=== PATIENT | female | born 1935 | race Caucasian/White ===

== ENCOUNTER 2016-12-08 09:39 | Outpatient (CLI) | payer MEDICARE, OTHER ==
--- NOTE | 2016-12-09 15:40 | Mammography Report ---
DIGITAL SCREENING MAMMOGRAM: 12/08/2016 CLINICAL INDICATION: A 81-year-old with bilateral implants for screening. COMPARISON: 11/2015, 09/2014, 09/2013, 08/2012, 08/2010, 06/2008, 06/2007. TECHNIQUE: Routine CC and MLO projections were obtained of the breasts as well as bilateral implant displaced views. FINDINGS: The breasts demonstrate scattered fibroglandular densities bilaterally. Coarse and puncta te, typically benign calcifications are present. Bilateral subpectoral saline implants are stable. No suspicious masses, clustered microcalcifications, or regions of architectural distortion are ident ified. IMPRESSION: BENIGN FINDINGS. RECOMMENDATION: Routine annual screening unless otherwise clinically indicated. BI-RADS category 2, benign findings. STANDARD QUALIFYING STATEMENTS 1. This examination was reviewed with the aid of Computer-Aided Detection (CAD). 2. A negative or benign imaging report should not delay biopsy if clinically suspicious findings are present. Consider surgical consultation if warranted. More than 5% of cancers are not identified by i maging. 3. Dense breasts may obscure an underlying neoplasm. JOB #: [id number] EXT JOB #:[id number]
== END 2016-12-08 09:40 | disposition home or self-care (01) ==
LOC: DI 09:39
PROVIDERS: ATTEND Family Medicine
DX: Z12.31 Encounter for screening mammogram for malignant neoplasm of breast (principal)
CPT/HCPCS: 77067

== ENCOUNTER 2017-08-27 13:36 | Outpatient (CLI) | payer MEDICARE, OTHER ==
[2017-08-27 19:38] LABS: BILIRUBIN,URINE NEGATIVE (NEGATIVE); GLUCOSE, URINE (UA) NEGATIVE (NEGATIVE); KETONES,URINE (UA) NEGATIVE (NEGATIVE); LEUKOCYTE ESTERASE, URINE NEGATIVE (NEGATIVE); NITRITE,URINE POSITIVE (NEGATIVE); OCCULT BLOOD,URINE NEGATIVE (NEGATIVE); PH,URINE 5.5 PH (5.0-7.5); PROTEIN,URINE NEGATIVE (NEGATIVE); UROBILINOGEN,URINE 0.2 (NORMAL) E.U./dL (NORMAL)
[2017-08-27 19:46] LABS: BACTERIA,URINE Few /HPF (None Seen); CLARITY,URINE CLEAR (CLEAR); RBC,URINE 0-5 /HPF (0-5); SQUAMOUS EPITHELIAL CELL,UR MOD Squamous (<= Few)
== END 2017-08-27 13:37 ==
LOC: LAB.R 13:36
PROVIDERS: ATTEND Family Medicine
DX: R35.0 Frequency of micturition (principal)
CPT/HCPCS: 81001; 87086

== ENCOUNTER 2017-12-10 10:40 | Outpatient (CLI) | payer MEDICARE, OTHER ==
--- NOTE | 2017-12-11 14:56 | Mammography Report ---
Procedure Date: 12/10/2017 Accession Number: [id number] / [id number] Procedure: KEVIN - Screening Mammo Dig w/Implants CPT Code: FULL RESULT: EXAM: Screening Mammo Dig w/Implants DATE: 12/10/2017 11:05 AM CLINICAL HISTORY: 82-year-old for screening TECHNIQUE: Bilateral CC and MLO views, implant displaced views were obtained. COMPARISON: 12/08/2016, 12/06/2015, 09/22/2014, 09/13/2013, 08/20/2012, 08/21/2010 FINDINGS: The breasts demonstrate scattered fibroglandular densities bilaterally. Bilateral saline implants are stable. Punctate, typically benign calcifications are present. No suspicious masses, clustered microcalcifications, or regions of architectural distortion are identified. IMPRESSION: Benign findings RECOMMENDATION: Routine annual screening unless otherwise clinically indicated. BIRADS CATEGORY 2: Benign findings STANDARD QUALIFYING STATEMENTS: 1. This examination was reviewed with the aid of Computer-Aided Detection (CAD). 2. A negative or benign imaging report should not delay biopsy if clinically suspicious findings are present. Consider surgical consultation if warrented. More than 5% of cancers are not identified by imaging. 3. Dense breasts may obscure an underlying neoplasm.
== END 2017-12-10 10:41 | disposition home or self-care (01) ==
LOC: DI 10:40
PROVIDERS: ATTEND Family Medicine
DX: Z12.31 Encounter for screening mammogram for malignant neoplasm of breast (principal); Z98.82 Breast implant status
CPT/HCPCS: 77067

== ENCOUNTER 2018-01-29 09:55 | Outpatient (CLI) | payer MEDICARE, OTHER ==
--- NOTE | 2018-01-29 13:08 | DEXA Report ---
Procedure Date: 01/29/2018 Accession Number: [id number] / [id number] Procedure: DEX - Dexa Spine and/or Hip CPT Code: FULL RESULT: EXAM: DEXA SCAN DATE: 01/29/2018. HISTORY: 82-year-old postmenopausal female. COMPARISON: None. TECHNIQUE: Lumbar spine and left hip were evaluated. FINDINGS: See separate data worksheet. Lumbar spine: Bone mineral density 0.980 g/sq cm, T score -1.7, Z score 0.6. Left hip: Neck: Bone mineral density 0.829 g/sq cm, T score -1.5, Z score 1.0. Total: Bone mineral density 0.890 g/sq cm, T score -0.9, Z score 1.4. IMPRESSION: Osteopenia. T score at or above -1 is normal. T score between -1 and 2.5 = Osteopenia T score at or below -2.5 = Osteoporosis. RADIA
== END 2018-01-29 09:56 | disposition home or self-care (01) ==
LOC: DI 09:55
PROVIDERS: ATTEND Family Medicine
DX: M85.89 Other specified disorders of bone density and structure, multiple sites (principal)
CPT/HCPCS: 77080

== ENCOUNTER 2018-08-05 06:09 | Day surgery (SDC) | payer MEDICARE, OTHER ==
[2018-08-05] MEDS ORDERED: PHENYLEPHRINE 2.5% OPHTH 2 ML DROPS ONE (06:28)
[2018-08-05] MEDS ORDERED: KETOROLAC 0.45% OPHTH DROPS ONE (06:28)
[2018-08-05] MEDS ORDERED: PROPARACAINE 0.5% OPHTH DROPS 15 ML ONE (06:29)
[2018-08-05] MEDS ORDERED: CYCLOPENTOLATE 1% OPHTH DROPS 2 ML ONE (06:29)
[2018-08-05] MEDS ORDERED: KETOROLAC 0.45% OPHTH DROPS LEFTEYE ONE (06:42)
[2018-08-05] MEDS ORDERED: PHENYLEPHRINE 2.5% OPHTH 2 ML DROPS LEFTEYE ONE (06:42)
[2018-08-05] MEDS ORDERED: PROPARACAINE 0.5% OPHTH DROPS 15 ML LEFTEYE ONE ×2 (06:42→07:43)
[2018-08-05] MEDS ORDERED: CYCLOPENTOLATE 1% OPHTH DROPS 2 ML LEFTEYE ONE (06:42)
[2018-08-05] MEDS ORDERED: LACTATED RINGERS 1,000 ML IV ONE (06:55)
--- NOTE | 2018-08-05 07:04 | ANESTHESIA ---
Pre-Anesthesia VS, & Labs - Diagnosis Senile combined cataract left eye - Procedure cataract extraction with intraocular lens implant left eye Vital Signs: Temp Pulse Resp BP Pulse Ox 37.4 C 72 14 134/67 H 98 08/05/18 06:37 08/05/18 06:37 08/05/18 06:37 08/05/18 06:37 08/05/18 06:37 Height 5 ft 7 in Weight (kg) 50.3 kg Body Mass Index 20.3 - NPO >8 hours - Is Patient ?: No Home Medications and Allergies Levothyroxine Sodium [Synthroid] 50 mcg PO DAILY 10/28/13 Pentosan Polysulfate Sodium [Elmiron] 100 mg PO DAILY 10/28/13 Allergies/Adverse Reactions: Allergies Allergy/AdvReac Type Severity Reaction Status Date / Time simvastatin AdvReac Intermediate muscle Verified 10/28/13 05:24 aches Anes History & Medical History - Anesthetic History Anesthesia Complications: reports: No previous complications - Medical History Cardiovascular: reports: High cholesterol Pulmonary: reports: None Gastrointestinal: reports: Diverticulitis Urinary: reports: None Neuro: reports: None Musculoskeletal: reports: Osteoarthritis Endocrine/Autoimmune: reports: HyPOthyroidism Skin: reports: None Smoking Status: Never smoker Psychosocial: reports: Depression, Anxiety, Alcohol (1 glass of wine every evening) - Surgical History General: Colonoscopy Gynecologic: LEEP (Cervical surgery) Exam General: Alert, Oriented x3, Cooperative, No acute distress Dental: WNL Mouth Openin Fingerbreadth Neck Mobility: Normal Mallampati classification: II Thyromental Distance: 4-6 cm Respiratory: Lungs clear, Normal breath sounds, No respiratory distress, No accessory muscle use Cardiovascular: Regular rate, Normal S1, Normal S2, No murmurs Mental/Cognitive Status: Alert/Oriented X3, Normal for patient Plan Anesthesia Type: MAC Consent for Procedure(s) Verified and Reviewed: Yes Code Status: Attempt Resuscitation ASA classification: 2-Mild systemic disease Is this case an emergency?: No
[2018-08-05] MEDS ORDERED: BRIMONIDINE 0.2% OPHTH DROPS 5 ML ONE (07:09)
[2018-08-05] MEDS ORDERED: EPINEPHrine 1 MG/ML AMP ONE (07:09)
[2018-08-05] MEDS ORDERED: TRIAMCIN/MOXIFLOX OPHTHALMIC 0.6 ML VIAL IO ONE ×2 (07:09→07:44)
[2018-08-05] MEDS ORDERED: TIMOLOL 0.5% OPHTH DROPS ONE (07:09)
[2018-08-05] MEDS ORDERED: VANCOMYCIN OPHTHALMI 8MG/0.8ML 8 MG/0.8 ML SYRINGE IO ONE ×2 (07:10→07:43)
[2018-08-05] MEDS ORDERED: BSS/LIDOCAINE/EPINEPHRINE 1 ML SYRINGE ONE (07:10)
[2018-08-05] MEDS ORDERED: MIDAZOLAM 2 MG/2 ML VIAL IVP ONE (07:15)
[2018-08-05] MEDS ORDERED: TIMOLOL 0.5% OPHTH DROPS OPTH ONE (07:42)
[2018-08-05] MEDS ORDERED: CHONDR SULF/HYALURONATE SYRINGE IO ONE (07:42)
[2018-08-05] MEDS ORDERED: EPINEPHrine 1 MG/ML AMP IVP ONE (07:42)
[2018-08-05] MEDS ORDERED: BRIMONIDINE 0.2% OPHTH DROPS 5 ML OPTH ONE (07:42)
[2018-08-05] MEDS ORDERED: BSS/LIDOCAINE/EPINEPHRINE 1 ML SYRINGE IO ONE ×2 (07:42)
[2018-08-05 08:04] VITALS: BP 117/56
--- NOTE | 2018-08-05 08:28 | OPERATIVE REPORT ---
DATE OF SERVICE: 08/05/2018 Physician: Boy Jasmine MD PREOPERATIVE DIAGNOSIS: Visually significant cataract, left eye. This was her first cataract surger y. POSTOPERATIVE DIAGNOSIS: Visually significant cataract, left eye. This was her first cataract surge ry. NAME OF PROCEDURE: Phacoemulsification with posterior chamber intraocular lens implant, left eye. SURGEON: Boy Jasmine MD ANESTHESIA: Monitored anesthesia care. COMPLICATIONS: None. OPERATIVE INDICATIONS: This is an 83-year-old woman with progressive vision loss in the left eye due to a 2+ nuclear sclerotic and vacuole cataract. Best corrected visual acuity was 20/40 with glare t o 20/50 in the left eye. Indications for surgery are difficulty seeing words, closed captions or rivka e scores on TV, difficulty seeing street signs, difficulty driving at night because of headlights fro m other vehicles and/or street lights, and difficulty with glare or bright lights in any situation. She was consented at length concerning the risks and benefits of cataract surgery, after which she ex pressed a desire to proceed with surgery. OPERATIVE PROCEDURE: Patient was taken into OR #3 and placed under monitored anesthesia care. A brianda gical timeout was conducted confirming correct patient, correct procedure, and correct surgical site. She was given topical anesthesia, and then prepped and draped in the usual sterile fashion. The ey e was entered at the 6 and 3 o'clock positions. Intracameral Shugarcaine was injected into the anter ior chamber, followed by Viscoat. A continuous-tear curvilinear capsulorrhexis was performed. The n ucleus was hydrodissected and phacoemulsified. The cortex was evacuated using automated infusion and aspiration. Provisc was injected in the capsular bag, and a 22.5 diopter intraocular lens was inser yuliana into the bag. Approximately 0.8 mL of a mixture of triamcinolone, moxifloxacin, and vancomycin w as injected subconjunctivally in the superior quadrant for infection and inflammation prophylaxis. I and A was used to evacuate the viscoelastic materials. The eye was inflated to physiologic pressure using a balanced salt solution and found to be watertight. Patient was taken from the operating amador m in good condition and given postoperative instructions. TD: 08/05/2018 08:06
== END 2018-08-05 06:10 | disposition home or self-care (01) ==
LOC: SDS 06:09
PROVIDERS: ATTEND Ophthalmology
PROC: 08RK3JZ Replacement of Left Lens with Synthetic Substitute, Percutaneous Approach (ICD-10-PCS; principal; 2018-08-05 07:30)
DX: H25.812 Combined forms of age-related cataract, left eye (principal); E78.00 Pure hypercholesterolemia, unspecified; E03.9 Hypothyroidism, unspecified; M19.90 Unspecified osteoarthritis, unspecified site; R32 Unspecified urinary incontinence; Z87.440 Personal history of urinary (tract) infections
CPT/HCPCS: 66984; A9270; J3490; J7120; V2632

== ENCOUNTER 2018-08-18 09:50 | Outpatient (CLI) | payer MEDICARE, OTHER ==
[2018-08-18 12:31] LABS: BASOPHILS # (AUTO) 0.1 10^3/uL (0.0-0.1); BASOPHILS % (AUTO) 1.4 %; EOSINOPHILS # (AUTO) 0.2 10^3/uL (0.0-0.7); EOSINOPHILS % (AUTO) 3.3 %; HGB - HEMOGLOBIN 13.7 g/dL (12.0-16.0); LYMPHOCYTES % (AUTO) 21.7 %; MEAN CORPUSCULAR HEMOGLOBIN 31.2 pg (27.0-31.0); MEAN CORPUSCULAR HGB CONC 33.8 g/dL (32.0-36.0); MEAN CORPUSCULAR VOLUME 92.2 fL (81.0-99.0); MEAN PLATELET VOLUME 9.3 fL (7.9-10.8); MONOCYTES # (AUTO) 0.5 10^3/uL (0.0-1.0); MONOCYTES % (AUTO) 10.3 %; NEUTROPHILS # (AUTO) 2.9 10^3/uL (1.5-6.6); NEUTROPHILS % (AUTO) 63.3 %; PLT - PLATELET COUNT 184 10^3/uL (130-450); RED BLOOD COUNT 4.39 10^6/uL (4.20-5.40); RED CELL DISTRIBUTION WIDTH 13.9 % (12.0-15.0); WHITE BLOOD COUNT 4.6 x10^3/uL (4.8-10.8)
[2018-08-18 13:44] LABS: ALBUMIN 4.3 g/dL (3.2-5.5); ALBUMIN/GLOBULIN RATIO 1.5 (1.0-2.2); BILIRUBIN,TOTAL 1.4 mg/dL (0.2-1.0); CALCIUM 9.8 mg/dL (8.5-10.3); CREATININE 0.7 mg/dL (0.4-1.0); TOTAL PROTEIN 7.2 g/dL (6.7-8.2)
== END 2018-08-18 23:59 | disposition home or self-care (01) ==
LOC: LAB.WCP 09:50
PROVIDERS: ATTEND Physician Assistant
DX: R00.2 Palpitations (principal)
CPT/HCPCS: 36415; 80053; 85025

== ENCOUNTER 2018-08-20 09:09 | Outpatient (CLI) | payer MEDICARE, OTHER ==
[2018-08-20 13:22] LABS: THYROID STIMULATING HORMONE 3.62 uIU/mL (0.34-5.60)
[2018-08-20 13:24] LABS: FREE T4 (FREE THYROXINE) 0.91 ng/dL (0.58-1.64)
== END 2018-08-20 23:59 | disposition home or self-care (01) ==
LOC: LAB.WCP 09:09
PROVIDERS: ATTEND Physician Assistant
DX: E03.9 Hypothyroidism, unspecified (principal)
CPT/HCPCS: 36415; 84439; 84443; 84481

== ENCOUNTER 2018-08-25 08:58 | Outpatient (CLI) | payer MEDICARE, OTHER | END 2018-08-25 08:59 | disposition home or self-care (01) | LOC: DI 08:58 | PROVIDERS: ATTEND Physician Assistant | DX: R00.2 Palpitations (principal) | CPT/HCPCS: 93306 ==

== ENCOUNTER 2018-12-02 08:49 | Day surgery (SDC) | payer MEDICARE, OTHER ==
[~2018-12-02 08:49] MED LIST: BRIMONIDINE 0.2% OPHTH DROPS 5 ML ONE; BSS/LIDOCAINE/EPINEPHRINE 1 ML SYRINGE ONE; CYCLOPENTOLATE 1% OPHTH DROPS 2 ML ONE; EPINEPHrine 1 MG/ML AMP ONE; KETOROLAC 0.45% OPHTH DROPS ONE; PHENYLEPHRINE 2.5% OPHTH 2 ML DROPS ONE; PROPARACAINE 0.5% OPHTH DROPS 15 ML ONE; TIMOLOL 0.5% OPHTH DROPS ONE; TRIAMCIN/MOXIFLOX OPHTHALMIC 0.6 ML VIAL IO ONE; VANCOMYCIN OPHTHALMI 8MG/0.8ML 8 MG/0.8 ML SYRINGE IO ONE
[2018-12-02] MEDS ORDERED: LACTATED RINGERS 500 ML IV ONE (09:35)
[2018-12-02] MEDS ORDERED: CYCLOPENTOLATE 1% OPHTH DROPS 2 ML RIGHTEYE ONE (09:40)
[2018-12-02] MEDS ORDERED: PHENYLEPHRINE 2.5% OPHTH 2 ML DROPS RIGHTEYE ONE (09:40)
[2018-12-02] MEDS ORDERED: PROPARACAINE 0.5% OPHTH DROPS 15 ML RIGHTEYE ONE (09:40)
[2018-12-02] MEDS ORDERED: KETOROLAC 0.45% OPHTH DROPS RIGHTEYE ONE (09:40)
--- NOTE | 2018-12-02 10:00 | ANESTHESIA ---
Pre-Anesthesia VS, & Labs - Diagnosis senile combined cataract - Procedure right cataract extraction with intraocular lens implant Height 5 ft 7 in Body Mass Index 20.3 - NPO >8 hours - Is Patient ?: No, Not Applicable Home Medications and Allergies Levothyroxine Sodium [Synthroid] 50 mcg PO DAILY 10/28/13 Pentosan Polysulfate Sodium [Elmiron] 100 mg PO DAILY 10/28/13 Allergies/Adverse Reactions: Allergies Allergy/AdvReac Type Severity Reaction Status Date / Time simvastatin AdvReac Intermediate muscle Verified 10/28/13 05:24 aches Anes History & Medical History - Medical History Cardiovascular: reports: High cholesterol, Arrhythmia (had holter study for palpitations, patient states negative. echo normal) Pulmonary: reports: None Gastrointestinal: reports: Diverticulitis Urinary: reports: None Neuro: reports: None Musculoskeletal: reports: Osteoarthritis Endocrine/Autoimmune: reports: HyPOthyroidism Skin: reports: None Smoking Status: Never smoker - Surgical History General: Colonoscopy Gynecologic: LEEP (Cervical surgery) Exam General: Alert Dental: WNL Mouth Opening: Greater than 4 Fingerbreadths Neck Mobility: Normal Mallampati classification: II Thyromental Distance: greater than 6 cm Respiratory: Lungs clear Cardiovascular: Regular rate, Normal S1 Mental/Cognitive Status: Alert/Oriented X3 Plan Anesthesia Type: MAC Consent for Procedure(s) Verified and Reviewed: Yes Code Status: Attempt Resuscitation ASA classification: 2-Mild systemic disease Is this case an emergency?: No
[2018-12-02] MEDS ORDERED: TIMOLOL 0.5% OPHTH DROPS RIGHTEYE ONE (10:18)
[2018-12-02] MEDS ORDERED: BRIMONIDINE 0.2% OPHTH DROPS 5 ML OPTH ONE (10:18)
[2018-12-02] MEDS ORDERED: CHONDR SULF/HYALURONATE SYRINGE IO ONE (10:18)
[2018-12-02] MEDS ORDERED: EPINEPHrine 1 MG/ML AMP IVP ONE (10:18)
[2018-12-02] MEDS ORDERED: BSS/LIDOCAINE/EPINEPHRINE 1 ML SYRINGE IO ONE (10:19)
[2018-12-02] MEDS ORDERED: VANCOMYCIN OPHTHALMI 8MG/0.8ML 8 MG/0.8 ML SYRINGE IO ONE (10:21)
[2018-12-02] MEDS ORDERED: TRIAMCIN/MOXIFLOX OPHTHALMIC 0.6 ML VIAL IO ONE (10:22)
[2018-12-02] MEDS ORDERED: MIDAZOLAM 2 MG/2 ML VIAL IVP ONE (10:30)
[2018-12-02 10:44] VITALS: BP 116/55
--- NOTE | 2018-12-02 13:08 | OPERATIVE REPORT ---
DATE OF SERVICE: 12/02/2018 Physician: Boy Jasmine MD PREOPERATIVE DIAGNOSIS: Visually significant cataract, right eye. Cataract surgery was performed on the left eye on 08/05/2018. POSTOPERATIVE DIAGNOSIS: Visually significant cataract, right eye. Cataract surgery was performed o n the left eye on 08/05/2018. PROCEDURE: Phacoemulsification with posterior chamber intraocular lens implant, right eye. SURGEON: Byo Jasmine MD ANESTHESIA: Monitored anesthesia care. COMPLICATIONS: None. OPERATIVE INDICATIONS: This is an 83-year-old woman with progressive vision loss in the right eye du e to 2+ nuclear sclerotic and vacuolar cataract. Best corrected visual acuity was 20/40, with glare to 20/80 in the right eye. Indications for surgery are overall decrease in vision, difficulty seeing words, closed captions, games scores on TV and difficulty seeing street signs. She was consented at length concerning the risks and benefits of cataract surgery, after which she expressed a desire to proceed with surgery. OPERATIVE PROCEDURE: Patient was taken to OR #3 and placed under monitored anesthesia care. A surgi yaquelin timeout was conducted confirming the correct patient, correct procedure, and correct surgical sit e. She was given topical anesthesia, and prepped and draped in the usual sterile fashion. The eye w as entered at the 12 and 9 o'clock positions. Intracameral Shugarcaine was injected into the anterio r chamber, followed by Viscoat. A continuous-tear curvilinear capsulorrhexis was performed. The nuc leus was hydrodissected and phacoemulsified. The cortex was evacuated using automated infusion and a spiration. Provisc was injected into the capsular bag, and a 22.5 diopter intraocular lens inserted in the bag. Approximately 0.8 mL mixture of triamcinolone, moxifloxacin and vancomycin was injected subconjunctivally in the superior quadrant for infection and inflammation prophylaxis. I and A was u sed to evacuate viscoelastic materials. The eye was inflated to physiologic pressure using balanced salt solution and found to be watertight. Patient was taken from the operating room in [facility] n and given postoperative instructions. TD: 12/02/2018 10:46
== END 2018-12-02 08:50 | disposition home or self-care (01) ==
LOC: SDS 08:49
PROVIDERS: ATTEND Ophthalmology
PROC: 08RJ3JZ Replacement of Right Lens with Synthetic Substitute, Percutaneous Approach (ICD-10-PCS; principal; 2018-12-02 10:30)
DX: H25.811 Combined forms of age-related cataract, right eye (principal); Z87.891 Personal history of nicotine dependence; Z98.42 Cataract extraction status, left eye
CPT/HCPCS: 66984; A9270; J3490; V2632

== ENCOUNTER 2019-01-19 14:02 | Outpatient (CLI) | payer MEDICARE, OTHER ==
--- NOTE | 2019-01-20 08:41 | Mammography Report ---
Reason: ANNUAL Procedure Date: 01/19/2019 Accession Number: [id number] / [id number] Procedure: KEVIN - Screening Mammo Dig w/Implants CPT Code: FULL RESULT: EXAM: Screening Mammo Dig w/Implants DATE: 01/19/2019 3:34 PM CLINICAL HISTORY: Screening encounter. History of endometrial cancer and bilateral saline implants most recently revised in 2000. TECHNIQUE: (B) - Bilateral CC and MLO views were obtained. Views are obtained in standard and implant displaced fashion COMPARISON: 12/10/2017 through 09/22/2014. PARENCHYMAL PATTERN: (A) - The breast(s) demonstrate(s) scattered fibroglandular densities. FINDINGS: Intact-appearing bilateral saline implants are noted. There are no suspicious masses, calcifications, or areas of distortion. IMPRESSION: Benign findings. BI-RADS category 2. RECOMMENDATION: (ANNUAL) - Recommend routine annual screening mammography. BI-RADS CATEGORY: (2) - Benign Findings. STANDARD QUALIFYING STATEMENTS: 1. This examination was not reviewed with the aid of Computer-Aided Detection (CAD). 2. A negative or benign imaging report should not preclude biopsy if clinically suspicious findings are present. 3. Dense breasts may obscure an underlying neoplasm. 4. This examination was reviewed without the aid of 3D breast imaging (tomosynthesis).
== END 2019-01-19 14:03 | disposition home or self-care (01) ==
LOC: DI 14:02
DX: Z12.31 Encounter for screening mammogram for malignant neoplasm of breast (principal); Z98.82 Breast implant status
CPT/HCPCS: 77067

== ENCOUNTER 2020-04-18 09:35 | Outpatient (CLI) | payer MEDICARE, OTHER ==
--- NOTE | 2020-04-18 12:32 | XRAY Report ---
PROCEDURE: Ankle 3 View RT INDICATIONS: R ANKLE PAIN TECHNIQUE: 3 views of the ankle were acquired. COMPARISON: None FINDINGS: Bones: No fractures or dislocations but there does appear to be a transverse lucency at the inferior tip of the lateral malleolus potentially a small avulsion injury related to ligamentous attachment. Asymmetric soft tissue swelling is associated. Ankle mortise is normally aligned. No suspicious bon y lesions. Soft tissues: No tibiotalar joint effusion. Achilles tendon appears normal. IMPRESSION: Small avulsion fragment inferior tip of the lateral malleolus with overlying soft tissue swelling. Ligamentous injury is the likely cause. Reviewed by: Morgan Hansen MD on 04/18/2020 12:31 PM PST Approved by: Morgan Hansen MD on 04/18/2020 12:31 PM PST Station ID: [id number]
== END 2020-04-18 23:59 | disposition home or self-care (01) ==
LOC: DI.WCP 09:35
PROVIDERS: ATTEND Family Medicine
DX: R93.6 Abnormal findings on diagnostic imaging of limbs (principal)

== ENCOUNTER 2020-11-16 08:00 | Outpatient (CLI) | payer MEDICARE, OTHER ==
[2020-11-16 12:31] LABS: BASOPHILS % (AUTO) 0.8 %; EOSINOPHILS # (AUTO) 0.1 10^3/uL (0.0-0.7); EOSINOPHILS % (AUTO) 2.7 %; HCT - HEMATOCRIT 41.6 % (37.0-47.0); HGB - HEMOGLOBIN 13.5 g/dL (12.0-16.0); LYMPHOCYTES # (AUTO) 1.1 10^3/uL (1.5-3.5); LYMPHOCYTES % (AUTO) 22.1 %; MEAN CORPUSCULAR HEMOGLOBIN 31.2 pg (27.0-31.0); MEAN CORPUSCULAR HGB CONC 32.5 g/dL (32.0-36.0); MEAN CORPUSCULAR VOLUME 96.1 fL (81.0-99.0); MEAN PLATELET VOLUME 11.2 fL (7.9-10.8); MONOCYTES # (AUTO) 0.5 10^3/uL (0.0-1.0); MONOCYTES % (AUTO) 9.3 %; NEUTROPHILS # (AUTO) 3.3 10^3/uL (1.5-6.6); NEUTROPHILS % (AUTO) 64.7 %; PLT - PLATELET COUNT 161 10^3/uL (130-450); RED BLOOD COUNT 4.33 10^6/uL (4.20-5.40); RED CELL DISTRIBUTION WIDTH 13.6 % (12.0-15.0); WHITE BLOOD COUNT 5.2 x10^3/uL (4.8-10.8)
[2020-11-16 12:51] LABS: THYROID STIMULATING HORMONE 2.66 uIU/mL (0.34-5.60)
[2020-11-16 12:57] LABS: ALBUMIN 4.4 g/dL (3.2-5.5); ALBUMIN/GLOBULIN RATIO 1.5 (1.0-2.2); BILIRUBIN,TOTAL 1.2 mg/dL (0.2-1.0); CALCIUM 9.7 mg/dL (8.5-10.3); CREATININE 0.7 mg/dL (0.4-1.0); POTASSIUM 4.4 mmol/L (3.5-5.0); TOTAL PROTEIN 7.3 g/dL (6.7-8.2)
== END 2020-11-16 23:59 | disposition home or self-care (01) ==
LOC: LAB.WCP 08:00
PROVIDERS: ATTEND Family Medicine
DX: D64.9 Anemia, unspecified (principal); E03.9 Hypothyroidism, unspecified
CPT/HCPCS: 36415; 80053; 82607; 82728; 83540; 84443; 84466; 85025

== ENCOUNTER 2021-02-07 12:48 | Outpatient (CLI) | payer MEDICARE, OTHER ==
--- NOTE | 2021-02-07 14:05 | DEXA Report ---
PROCEDURE: Dexa Spine and/or Hip INDICATIONS: OSTEOPENIA TECHNIQUE: Dual energy x-ray absorptiometry (DXA) was performed on a [employer]. Regions measur ed are the AP Spine, femoral neck, and if needed forearm. COMPARISON: None. FINDINGS: Lumbar Spine: Bone Mineral Density 0.987 g/cm/cm,T score -1.6, osteopenia Left Hip: Bone Mineral Density 0.855 g/cm/cm,T score -1.2, normal Neck Femoral Neck: Bone Mineral Density 0.819 g/cm/cm, T score -1.6, osteopenia (T score greater or equal to -1.0: NORMAL) (T score from -1.1 to -2.4: OSTEOPENIA) (T score less than or equal to -2.5 to: OSTEOPOROSIS) Impression: Bone mineral density consistent with osteopenia. Patients with diagnosis of osteoporosis or osteopenia should have regular bone mineral density assess ment. For those eligible for Medicare, routine testing is allowed once every 2 years. Testing frequ ency can be increased for patients who have rapidly progressing disease or for those who are receivin g medical therapy to restore bone mass. Reviewed by: Cayden Quiros on 02/07/2021 2:03 PM PDT Approved by: Cayden Quiros on 02/07/2021 2:03 PM PDT Station ID: [id number]
== END 2021-02-07 12:49 | disposition home or self-care (01) ==
LOC: DI 12:48
PROVIDERS: ATTEND Family Medicine
DX: M85.89 Other specified disorders of bone density and structure, multiple sites (principal)

== ENCOUNTER 2021-02-07 12:50 | Outpatient (CLI) | payer MEDICARE, OTHER ==
--- NOTE | 2021-02-08 13:38 | Mammography Report ---
BILATERAL DIGITAL SCREENING MAMMOGRAM 3D/2D WITH AUGMENTATION: 02/07/2021 CLINICAL: Routine screening. Comparison is made to exams dated: 01/19/2019 mammogram, 12/10/2017 mammogram, 12/08/2016 mammogram, 11/14 mammogram, 09/22/2014 mammogram, and 09/13/2013 mammogram - [facility]. There are scattered fibroglandular elements in both breasts. Bilateral breast implants are stable. No significant masses, calcifications, or other findings are seen in either breast. There has been no significant interval change. IMPRESSION: NEGATIVE There is no mammographic evidence of malignancy. A 1 year screening mammogram is recommended. This exam was interpreted at Station ID: [id number]. NOTE: For mammograms, a report in lay terms will be sent to the patient. Approximately 15% of breast malignancies will not be visualized mammographically. In the management of a palpable breast mass, a negative mammogram must not discourage biopsy of a clinically suspicious lesion. Electronically Signed By: Jamie Head M.D. atnasir/bellerad:02/07/2021 15:46:49 ACR BI-RADS Category 1: Negative 3341F PARENCHYMAL PATTERN: (A) - The breast(s) demonstrate(s) scattered fibroglandular densities. BI-RADS CATEGORY: (1) - 1 RECOMMENDATION: (ANNUAL) - Recommend routine annual screening mammography. [id number] 1 year screening LATERALITY: (B)
== END 2021-02-07 12:51 | disposition home or self-care (01) ==
LOC: DI 12:50
DX: Z12.31 Encounter for screening mammogram for malignant neoplasm of breast (principal); Z98.82 Breast implant status

== ENCOUNTER 2021-05-13 08:00 | Outpatient (CLI) | payer MEDICARE, OTHER ==
[2021-05-13 18:08] LABS: BASOPHILS # (AUTO) 0.1 10^3/uL (0.0-0.1); EOSINOPHILS # (AUTO) 0.2 10^3/uL (0.0-0.7); HCT - HEMATOCRIT 43.1 % (37.0-47.0); HGB - HEMOGLOBIN 14.6 g/dL (12.0-16.0); LYMPHOCYTES # (AUTO) 1.2 10^3/uL (1.5-3.5); LYMPHOCYTES % (AUTO) 24.4 %; MEAN CORPUSCULAR HEMOGLOBIN 32.7 pg (27.0-31.0); MEAN CORPUSCULAR HGB CONC 33.9 g/dL (32.0-36.0); MEAN CORPUSCULAR VOLUME 96.6 fL (81.0-99.0); MEAN PLATELET VOLUME 11.3 fL (7.9-10.8); MONOCYTES # (AUTO) 0.5 10^3/uL (0.0-1.0); NEUTROPHILS # (AUTO) 3.1 10^3/uL (1.5-6.6); NEUTROPHILS % (AUTO) 61.2 %; PLT - PLATELET COUNT 182 10^3/uL (130-450); RED BLOOD COUNT 4.46 10^6/uL (4.20-5.40); RED CELL DISTRIBUTION WIDTH 14.7 % (12.0-15.0); WHITE BLOOD COUNT 5.1 x10^3/uL (4.8-10.8)
[2021-05-13 18:26] LABS: ALBUMIN 4.8 g/dL (3.2-5.5); ALBUMIN/GLOBULIN RATIO 1.5 (1.0-2.2); BILIRUBIN,TOTAL 1.6 mg/dL (0.2-1.0); CALCIUM 10.2 mg/dL (8.5-10.3); CREATININE 0.7 mg/dL (0.4-1.0); POTASSIUM 3.7 mmol/L (3.5-5.0); TOTAL PROTEIN 7.9 g/dL (6.7-8.2)
== END 2021-05-13 23:59 | disposition home or self-care (01) ==
LOC: LAB.N 08:00
PROVIDERS: ATTEND Nurse Practitioner
DX: R42 Dizziness and giddiness (principal)
CPT/HCPCS: 36415; 80053; 85025

== ENCOUNTER 2022-07-14 12:37 | Outpatient (CLI) | payer MEDICARE, OTHER ==
--- NOTE | 2022-07-15 11:41 | Mammography Report ---
BILATERAL DIGITAL SCREENING MAMMOGRAM 3D/2D WITH AUGMENTATION: 07/14/2022 CLINICAL: Routine screening. Comparison is made to exams dated: 02/07/2021 mammogram, 01/19/2019 mammogram, 12/10/2017 mammogram, 11/14 mammogram, 12/06/2015 mammogram, and 09/22/2014 mammogram - [facility]. There are scattered areas of fibroglandular density in both breasts (category b / 25%-50% glandular t issue). Bilateral breast implants are stable. No significant masses, calcifications, or other findings are seen in either breast. There has been no significant interval change. IMPRESSION: NEGATIVE There is no mammographic evidence of malignancy. A 1 year screening mammogram is recommended. This exam was interpreted at Station ID: [id number]. NOTE: For mammograms, a report in lay terms will be sent to the patient. Approximately 15% of breast malignancies will not be visualized mammographically. In the management of a palpable breast mass, a negative mammogram must not discourage biopsy of a clinically suspicious lesion. Electronically Signed By: Cayden Quiros M.D. acr/penrad:07/14/2022 16:54:54 ACR BI-RADS Category 1: Negative 3341F PARENCHYMAL PATTERN: (A) - The breast(s) demonstrate(s) scattered fibroglandular densities. BI-RADS CATEGORY: (1) - 1 RECOMMENDATION: (ANNUAL) - Recommend routine annual screening mammography. [id number] 1 year screening LATERALITY: (B)
== END 2022-07-14 12:38 | disposition home or self-care (01) ==
LOC: DI 12:37
DX: Z12.31 Encounter for screening mammogram for malignant neoplasm of breast (principal)

== ENCOUNTER 2022-11-08 22:37 | Outpatient (CLI) | payer MEDICARE, OTHER | END 2022-11-08 22:38 | disposition EMS.NT | LOC: EMS 22:37 | DX: F41.9 Anxiety disorder, unspecified (principal) ==